=== PATIENT | male | born 1975 | race Two or more races ===

== ENCOUNTER → 2017-07-13 | Outpatient (CLI) | payer OTHER | LOC: AMB 09:42 | PROVIDERS: ATTEND Nurse Practitioner | DX: M54.2 Cervicalgia (principal); M54.5 Low back pain; V69.9XXA Occupant (driver) (passenger) of heavy transport vehicle injured in unspecified traffic accident, initial encounter; Y92.411 Interstate highway as the place of occurrence of the external cause | CPT/HCPCS: A0425; A0427 ==